=== PATIENT | female | born 1995 | race Caucasian/White ===

== ENCOUNTER 2020-06-24 13:26 | Emergency (ER) | payer OTHER, MEDICAID ==
[~2020-06-24] VITALS: Ht 157.5 cm; Wt 82.0 kg
[2020-06-24 15:40] VITALS: BP 124/73
[2020-06-24] MEDS ORDERED: IBUPROFEN 800MG TABLET PO ONE (15:45)
== END 2020-06-24 17:08 | disposition home or self-care (01) ==
LOC: ER 14:32
DX: M54.5 Low back pain (principal); M54.6 Pain in thoracic spine; Z88.0 Allergy status to penicillin; V49.88XA Car occupant (driver) (passenger) injured in other specified transport accidents, initial encounter; Y93.89 Activity, other specified; Y92.89 Other specified places as the place of occurrence of the external cause; Y99.8 Other external cause status
CPT/HCPCS: 72070; 72100; 81025; 99284